=== PATIENT | male | born 1965 | race Caucasian/White ===

== ENCOUNTER 2018-12-23 14:46 | Day surgery (SDC) | payer OTHER ==
[2018-12-19 17:24] VITALS: BMI 26.6
[2018-12-23] MEDS ORDERED: MIDAZOLAM HCL 2 MG/2 ML SINGLE DOSE VIAL ONE (16:34)
[2018-12-23] MEDS ORDERED: KETOROLAC TROMETHAMINE 30 MG/1 ML VIAL ONE (16:43)
--- NOTE | 2018-12-23 17:12 | OP ---
Operative Note - Note: Operative Date: 12/23/18 Pre-Operative Diagnosis: Left renal stone Operation: Lefrt ESWL Findings: 4 mm mid pole left renal stone Post-Operative Diagnosis: Same as Pre-op Surgeon: Errol Momin Anesthesia: Fractional Estimated Blood Loss (mls): 0
[2018-12-23 17:19] VITALS: PULSE 59
[2018-12-23 17:51] VITALS: BP 124/80; TEMP 98.1
--- NOTE | 2018-12-23 19:48 | OP ---
DATE OF OPERATION: 12/23/2018 PREOPERATIVE DIAGNOSIS: Left renal stone. POSTOPERATIVE DIAGNOSIS: Left renal stone. PROCEDURE: Left extracorporeal shock wave lithotripsy. ATTENDING: Errol Whaley MD ANESTHESIA: Fractional. DESCRIPTION OF OPERATION: The patient was brought in the operating room, placed in supine position on the operating room table. Ultrasonography and fluoroscopy were performed. A 4-mm left mid-pole stone was identified. Anesthesia and preoperative antibiotics were then administered. Shock wave lithotripsy was then performed. No complications were noted. Patient tolerated procedure very well. The disposition of the patient was to the recovery room. Garui [id number]
== END 2018-12-23 17:50 | disposition home or self-care (01) ==
LOC: JASU-SURG 14:46
PROVIDERS: ATTEND Urology
PROC: 0TF4XZZ Fragmentation in Left Kidney Pelvis, External Approach (ICD-10-PCS; principal; 2018-12-23 17:00)
DX: N20.0 Calculus of kidney (principal)

== ENCOUNTER 2024-03-24 04:09 | Day surgery (SDC) | payer OTHER ==
[2024-03-19 16:42] VITALS: BMI 25.1
[2024-03-24] MEDS ORDERED: MIDAZOLAM HCL 2 MG/2 ML SINGLE DOSE VIAL ONE (17:38)
[2024-03-24] MEDS ORDERED: FENTANYL CITRATE/PF 50 MCG/ML VIAL ONE (17:39)
[2024-03-24 18:30] VITALS: RESP 18
[2024-03-24 19:10] VITALS: BP 106/70; PULSE 62; TEMP 97.4
== END 2024-03-24 19:00 | disposition home or self-care (01) ==
LOC: JASU-SURG 04:09
PROVIDERS: ATTEND Urology
PROC: 0TF3XZZ Fragmentation in Right Kidney Pelvis, External Approach (ICD-10-PCS; principal; 2024-03-24 16:30)
DX: N20.0 Calculus of kidney (principal)
CPT/HCPCS: 36415; 82010; 82962